=== PATIENT | female | born 1970 | race Caucasian/White ===

== ENCOUNTER 2016-09-29 07:56 | Outpatient (CLI) | payer MEDICARE, OTHER ==
[2016-09-29 08:22] LABS: #Basophils 0.1 thou/uL (0.0-0.2); #Eosinphils 0.2 thou/uL (0.0-0.7); #Lymphocytes 1.2 thou/uL (1.20-3.40); #Monocytes 0.4 thou/uL (0.11-0.59); #Neutrophils 3.1 thou/uL (1.40-6.50); %Basophils 1.3 % (0.0-1.0); %Eosinophils 3.4 % (0.0-10.0); %Monocytes 7.1 % (0.0-10.0); Hematocrit 44.9 % (36.0-47.0); Mean Platelet Volume 6.7 fL (7.4-10.4); Red Blood Cell (RBC) Count 4.45 mill/uL (4.20-5.40); White Blood Cell (WBC) Count 4.9 thou/uL (4.8-10.8)
[2016-09-29 08:29] LABS: Hemoglobin A1c 5.5 % (4.0-6.0)
[2016-09-29 08:51] LABS: ALT (SGPT) 42 U/L (0-55); AST (SGOT) 34 U/L (5-34); Alkaline Phosphatase 80 U/L (40-150); Anion Gap 16 mmol/L (10-20); BUN (Urea Nitrogen) 14 mg/dL (7.0-18.7); Bilirubin, Total 1.4 mg/dL (0.2-1.2); Calc. Creatinine Clearance 0 mL/min (70-130); Carbon Dioxide 26 mmol/L (22-29); Chloride 102 mmol/L (98-107); Estimated GFR-MDRD 56; Globulin 3.4 g/dL (2.4-3.5); LDL Cholesterol, Calculated 89 mg/dL; Protein, Total 7.1 g/dL (6.0-8.3)
== END 2016-09-29 07:57 | disposition home or self-care (01) ==
LOC: BURLAB 07:56
PROVIDERS: ATTEND Family Medicine
DX: E03.9 Hypothyroidism, unspecified (principal); K21.9 Gastro-esophageal reflux disease without esophagitis; G47.33 Obstructive sleep apnea (adult) (pediatric); I50.30 Unspecified diastolic (congestive) heart failure; N18.3 Chronic kidney disease, stage 3 (moderate)
CPT/HCPCS: 36415; 80053; 80061; 83036; 84443; 85025

== ENCOUNTER 2016-12-09 09:01 | Outpatient (CLI) | payer MEDICARE, OTHER ==
[2016-12-09 09:31] LABS: Anion Gap 14 mmol/L (10-20); BUN (Urea Nitrogen) 17 mg/dL (7.0-18.7); Calc. Creatinine Clearance 0 mL/min (70-130); Calcium 9.3 mg/dL (7.8-10.44); Carbon Dioxide 28 mmol/L (22-29); Chloride 98 mmol/L (98-107); Estimated GFR-MDRD 52; Glucose 110 mg/dL (70-105); Sodium 136 mmol/L (136-145)
== END 2016-12-09 09:02 | disposition home or self-care (01) ==
LOC: BURLAB 09:01
PROVIDERS: ATTEND Internal Medicine Nephrology
DX: N18.9 Chronic kidney disease, unspecified (principal)
CPT/HCPCS: 36415; 80048

== ENCOUNTER 2017-06-08 08:24 | Outpatient (CLI) | payer MEDICARE, OTHER ==
[2017-06-08 09:30] LABS: Anion Gap 16 mmol/L (10-20); BUN (Urea Nitrogen) 14 mg/dL (7.0-18.7); Calc. Creatinine Clearance 0 mL/min (70-130); Calcium 9.1 mg/dL (7.8-10.44); Carbon Dioxide 27 mmol/L (22-29); Chloride 99 mmol/L (98-107); Estimated GFR-MDRD 44; Glucose 110 mg/dL (70-105); Potassium 3.7 mmol/L (3.5-5.1); Sodium 138 mmol/L (136-145)
== END 2017-06-08 08:25 | disposition home or self-care (01) ==
LOC: BURLAB 08:24
PROVIDERS: ATTEND Internal Medicine Nephrology
DX: N18.3 Chronic kidney disease, stage 3 (moderate) (principal)
CPT/HCPCS: 36415; 80048

== ENCOUNTER 2018-06-16 15:47 | Outpatient (CLI) | payer MEDICARE, OTHER ==
--- NOTE | 2018-06-16 19:30 | RAD ---
CHEST TWO VIEWS: 06/16/18 Comparison is made with a 01/27/[address] [facility]. There are diffuse infiltrative changes in the lower lobes. There really does not seem to be congestio n of the upper lobe vessels. The differential is between infection versus congestive change. There is slight prominence of the right hilum is probably due to the patient being turned slightly. Median st ernotomy sutures everardo prior surgery. The heart is upper normal in size. IMPRESSION: Increased interstitial markings. Edema versus infection. POS: HOME
== END 2018-06-16 15:48 | disposition home or self-care (01) ==
LOC: BURRAD 15:47
PROVIDERS: ATTEND Family Medicine
DX: J40 Bronchitis, not specified as acute or chronic (principal)
CPT/HCPCS: 71046

== ENCOUNTER 2018-09-27 09:32 | Outpatient (CLI) | payer MEDICARE, OTHER ==
--- NOTE | 2018-09-27 17:45 | RAD ---
CHEST 2 VIEWS: DATE: 09/27/2018. FINDINGS: Comparison is made with a 06/16/2018 study. Moderate cardiomegaly is about the same as before. There is congestion of vessels and some mild edema and small pleural effusions. CHF is presumed. While i nfectious infiltrates could also be a part of the lower lobes, congestive change could easily explain all findings. IMPRESSION: Congestive changes as noted. POS: HOME
== END 2018-09-27 09:33 | disposition home or self-care (01) ==
LOC: BURRAD 09:32
PROVIDERS: ATTEND Family Medicine
DX: J40 Bronchitis, not specified as acute or chronic (principal); R09.89 Other specified symptoms and signs involving the circulatory and respiratory systems
CPT/HCPCS: 71046